=== PATIENT | male | born 1950 | race Two or more races ===

== ENCOUNTER 2024-05-07 10:38 | Emergency (ER) | payer MEDICARE ==
[~2024-05-07] VITALS: Ht 170.2 cm; Wt 68.9 kg
[2024-05-07 10:44] VITALS: BP 133/68; TEMP 98.7; O2SAT 100
== END 2024-05-07 11:45 | disposition home or self-care (01) ==
LOC: ER 10:45
DX: S63.591A Other specified sprain of right wrist, initial encounter (principal); Z88.8 Allergy status to other drugs, medicaments and biological substances; X50.9XXA Other and unspecified overexertion or strenuous movements or postures, initial encounter; Y93.H2 Activity, gardening and landscaping; Y92.89 Other specified places as the place of occurrence of the external cause; Y99.8 Other external cause status
CPT/HCPCS: 73090-TC; 73110; 73130-TC